=== PATIENT | male | born 1975 | race Caucasian/White ===

== ENCOUNTER 2016-10-04 18:43 | Emergency (ER) | payer OTHER ==
--- NOTE | ~2016-10-04 | CR21 ---
[facility] A Service of [facility] RADIOLOGY TEXT RESULTS PATIENT: EDUARDO MEDINA LOCATION: [facility] : 71 UNIT #: [id number] AGE: [address]: Galina Bah SEX: M ORDER DR: [id number] [facility] [address] [place], [place] [address] [id number] MR#: [id number] #: [id number] NAME: EDUARDO MEDINA : 1975 SEX: M STUDY DATE/TIME: 10/04/2016 18:56 UNIT: [facility] ROOM: STUDY DESCRIPTION: CR Ankle Min 3 Views Rt Attending Physician: Galina Bah P.A.-C. Ordering Physician: Galina Bah P.A.-C. Primary Care Physician: No Primary Care Physician MEDICAL IMAGING REPORT This report is preliminary unless electronic signature is present EXAM Right ankle, 10/04/16. INDICATION 41-year-old male with history of trauma, pain and swelling. Symptoms began a month ago. A branch hit the ankle when coming down a tree. The patient reports a history of hypertension, but not currently taking medication. TECHNIQUE Three views of the right ankle. COMPARISON No comparisons. FINDINGS There is moderately severe lateral soft tissue swelling. No acute-appearing fracture. 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 Small well corticated osseous density inferior to the fibula likely represents a tiny accessory ossicle or sequela of old healed trauma. It measures about 4 mm. IMPRESSION 1. There is soft tissue swelling laterally but no underlying acute fracture identified. 2. 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 3. 4 mm nonspecific calcification adjacent to the fibula likely represents sequela of old healed trauma. Dictated by... Chriss Brito M.D. [facility] A Service [facility] RADIOLOGY TEXT RESULTS PATIENT: EDUARDO MEDINA LOCATION: [facility] : 71 UNIT #: [id number] AGE: [address]: Galina Bah SEX: M ORDER DR: THIS IS AN ELECTRONICALLY VERIFIED REPORT Chriss Brito M.D. at 10/04/2016 10:19 PM Kalin TD: 10/04/2016 21:08 JOB #: [id number] MEDICAL IMAGING REPORT Page 1 of 1 COPY
[~2016-10-04 18:43] MED LIST: VICODIN 5/1 TAB 5/50 PO
== END 2016-10-04 19:42 | disposition home or self-care (01) ==
LOC: CED 18:43 → CFTX 18:43
DX: S93.411A Sprain of calcaneofibular ligament of right ankle, initial encounter (principal); I10 Essential (primary) hypertension; F17.210 Nicotine dependence, cigarettes, uncomplicated; W22.8XXA Striking against or struck by other objects, initial encounter; Y92.009 Unspecified place in unspecified non-institutional (private) residence as the place of occurrence of the external cause
CPT/HCPCS: 29515; 73610; 99283